=== PATIENT | male | born 1965 | race Two or more races ===

== ENCOUNTER 2021-02-03 08:20 | Day surgery (SDC) | payer OTHER ==
[~2021-02-03 08:20] MED LIST: COZAAR50 MG PO
== END 2021-02-03 17:40 | disposition home or self-care (01) ==
LOC: CIR.AMB 08:20
PROVIDERS: ATTEND Orthopaedic Surgery
DX: S46.122A Laceration of muscle, fascia and tendon of long head of biceps, left arm, initial encounter (principal); Z20.822 Contact with and (suspected) exposure to COVID-19